=== PATIENT | female | born 1995 | race Two or more races ===

== ENCOUNTER → 2017-10-03 | Outpatient (CLI) | payer OTHER | END | disposition home or self-care (01) | LOC: HKI 13:56 | DX: M23.52 Chronic instability of knee, left knee (principal) | CPT/HCPCS: Z7500 ==

== ENCOUNTER → 2017-11-06 | Outpatient (CLI) | payer OTHER | END | disposition home or self-care (01) | LOC: HKI 10:54 | DX: M25.562 Pain in left knee (principal) | CPT/HCPCS: Z7500 ==